=== PATIENT | female | born 1965 | race Caucasian/White ===

== ENCOUNTER 2023-07-23 10:26 | Emergency (ER) | payer OTHER, SELFPAY ==
[2023-07-23 10:36] VITALS: BP 188/82
--- NOTE | 2023-07-23 12:21 | ED.GENMED ---
History of Present Illness
General
Chief Complaint: Musculo-Skeletal Complaint
Source: patient
Exam Limitations: none
Time Seen by Provider: 07/23/23 11:06
Nursing documentation reviewed up to this point in time: agreed with
Travel History
Have you had any contact with someone who has COVID-19?: No
Do you have any symptoms of coronavirus? Fever > 100 degrees, chills, cough, shortness of breath, sore throat, loss of taste or smell, muscle aches, or headache?: No
History of Present Illness
History of Present Illness:
57-year-old female past medical history of GERD diabetes presenting to the emergency department today after twisting her left ankle on the sidewalk yesterday. Has been able to limp since. Denies any numbness weakness.
Past History
Past History
ED Past Medical History: GERD and Hypothyroidism
ED Past Surgical History: Gynecological
Social History
Tobacco: Non-smoker
Alcohol: Occasional
Drug: None
Personal:
Living: with family
Employment: Employed
Review of Systems
Review of Systems
Allergies reviewed?: Yes
All Other Systems: ROS reviewed and negative except as documented in HPI and ROS
Phy Exam
Physical Exam
Physical Exam:
GENERAL: Alert , in no apparent distress
EYE: pupils equal and reactive
NECK: Supple, no significant adenopathy.
ENT: o/p clr, mmm.
CARDIAC: Regular rate and rhythm .
LUNGS: Clear breath sounds bilaterally, no acute respiratory distress, no wheezes/rales/rhonchi
ABDOMEN: Soft, without focal tenderness, no r/g, no cvat
NEUROLOGICAL: Alert and oriented, no focal neuro deficits
SKIN: Warm and dry, skin intact.
MUSCULOSKELETAL: Swelling and tenderness palpation to the lateral malleolus of the left ankle otherwise no tenderness to the medial malleolus foot base of the fifth metatarsal toes tib-fib or knee. Well perfused.
PSYCH: Normal and appropriate interaction.
Course
Orders/Labs/Results
Orders:
Orders
07/23/23 10:39
Ankle, left 3 view CR [CR Ankle - Left Min 3 Views ] Urgent
Comment:
Reason For Exam: twisted left ankle yesterday
07/23/23 11:42
Crutches-Treatment ONCE
boot [Ortho Boot Left- Treatment] ONCE
Short or tall?: Tall
Vital Signs
Initial and Last Documented VS:
Initial Vital Signs
Temp Pulse Resp BP Pulse Ox
98.0 F 95 16 188/82 98
07/23/23 10:36 07/23/23 10:36 07/23/23 10:36 07/23/23 10:36 07/23/23 10:36
Last Documented Vital Signs
Temp Pulse Resp BP Pulse Ox
98.0 F 95 16 188/82 98
07/23/23 10:36 07/23/23 10:36 07/23/23 10:36 07/23/23 10:36 07/23/23 10:36
MDM/Problems Addressed
MDM/Problems Addressed:
57-year-old female presenting to the emergency department today with concerns of left sided ankle swelling discomfort after twisting her ankle stepping awkwardly on a sidewalk yesterday. Has been able to weight-bear but has been limping. Swelling
is mainly to the lateral malleolus. X-ray showing distal fibular fracture. She was placed in a cam boot and she was given a walker as she was not able to tolerate crutches. She was advised to weight-bear as little as possible until orthopedic
follow-up for further recommendation.
*Critical Care Note
Total Time (30-74mins, 75-104mins- exclusive of procedures): Not Applicable
ED Attending Note
-
Portions of this chart may have been created with voice recognition software.� Occasional wrong word or��sound alike� substitutions may have occurred due to the inherent limitations of voice recognition software.
Discharge Plan
Departure
Patient Disposition: Home (Routine Discharge)
Date of Disposition: 07/23/23
Time of Disposition: 12:21
Patient with high blood pressure during this ER visit?: No
Condition: Good
Covid-19: Not Applicable
Discharge Problem:
Ankle fracture, left
Instructions: Ankle Fracture (DC)
Prescriptions:
No Action
lansoprazole [Prevacid] 30 MG capsule,delayed release(DR/EC)
30 mg PO DAILY
levothyroxine 75 MCG tablet
75 mcg PO DAILY
Lactobacillus acidophilus [Probiotic] 1 EACH capsule
1 ea PO DAILY
lorazepam 1 MG tablet
1 mg PO Q6HPRN PRN (Reason: anxiety) Qty: 9 0RF
benzonatate 100 MG capsule
100 mg PO TIDPRN PRN (Reason: cough) Qty: 20 0RF
Referrals:
Eron De La Cruz MD [Active] - Follow up in 5-7 days
Malik Sosa DO [Family Provider] -
Stand Alone Forms: Return to Work
Activity Restrictions/Additional Instructions:
You came to the emergency department today with concerns of ankle discomfort. You are found to have a distal fibular fracture. You are placed in a boot and given a walker to help with ambulation. Please do not weight-bear or weight-bear as little
as possible until orthopedic follow-up for further recommendation. Otherwise please rest ice elevate to help with symptoms.
Interventions
Interventions:
*ED COVID-19 Vaccine History Last Done: 07/23/23 10:36
ED-Musculoskeletal Assessment Last Done: 07/23/23 11:05
Discharge Date and Time
Print Language: CYPRIOT
== END 2023-07-23 12:41 | disposition home or self-care (01) ==
LOC: EMR 10:26
PROVIDERS: EMERGENCY PHYSICIAN Emergency Medicine; FAMILY PHYSICIAN Internal Medicine
DX: S82.832A Other fracture of upper and lower end of left fibula, initial encounter for closed fracture (principal); X50.1XXA Overexertion from prolonged static or awkward postures, initial encounter; Y92.480 Sidewalk as the place of occurrence of the external cause; K21.9 Gastro-esophageal reflux disease without esophagitis; E11.9 Type 2 diabetes mellitus without complications; E03.9 Hypothyroidism, unspecified
CPT/HCPCS: 99283; 29515; 73610

== ENCOUNTER → 2023-09-05 07:47 | Outpatient (REF) | payer OTHER, SELFPAY | LOC: HWRAD 07:47 | PROVIDERS: ATTENDING PHYSICIAN Internal Medicine Endocrinology, Diabetes & Metabolism; FAMILY PHYSICIAN Internal Medicine; REFERRING PHYSICIAN Nurse Practitioner Family | DX: E11.9 Type 2 diabetes mellitus without complications (principal); Z12.31 Encounter for screening mammogram for malignant neoplasm of breast | CPT/HCPCS: 76536; 77063; 77067 ==

== ENCOUNTER 2023-09-06 06:15 | Outpatient (RCR) | payer OTHER, SELFPAY | END 2023-09-06 23:59 | disposition home or self-care (01) | LOC: RPT 06:15 | PROVIDERS: ATTENDING PHYSICIAN Orthopaedic Surgery; FAMILY PHYSICIAN Internal Medicine | DX: S82.832D Other fracture of upper and lower end of left fibula, subsequent encounter for closed fracture with routine healing (principal); W17.2XXD Fall into hole, subsequent encounter; R26.2 Difficulty in walking, not elsewhere classified; M62.81 Muscle weakness (generalized); Z73.6 Limitation of activities due to disability | CPT/HCPCS: 97110; 97161; 97530 ==

== ENCOUNTER 2023-10-17 15:41 | Outpatient (RCR) | payer OTHER, SELFPAY | END 2023-10-17 23:59 | disposition home or self-care (01) | LOC: RPT 15:41 | PROVIDERS: ATTENDING PHYSICIAN Orthopaedic Surgery; FAMILY PHYSICIAN Internal Medicine | DX: Z73.6 Limitation of activities due to disability (principal) | CPT/HCPCS: 97010; 97110; 97140; 97530 ==

== ENCOUNTER 2023-11-19 15:44 | Outpatient (RCR) | payer OTHER, SELFPAY | END 2023-11-19 23:59 | disposition home or self-care (01) | LOC: RPT 15:44 | PROVIDERS: ATTENDING PHYSICIAN Orthopaedic Surgery; FAMILY PHYSICIAN Internal Medicine | DX: S82.892D Other fracture of left lower leg, subsequent encounter for closed fracture with routine healing (principal); X58.XXXD Exposure to other specified factors, subsequent encounter; Z73.6 Limitation of activities due to disability | CPT/HCPCS: 97010; 97110; 97112; 97140; 97530 ==

== ENCOUNTER 2023-12-18 15:51 | Outpatient (RCR) | payer OTHER, SELFPAY | END 2023-12-18 23:59 | disposition home or self-care (01) | LOC: RPT 15:51 | PROVIDERS: ATTENDING PHYSICIAN Orthopaedic Surgery; FAMILY PHYSICIAN Internal Medicine | DX: Z47.89 Encounter for other orthopedic aftercare (principal); S82.832D Other fracture of upper and lower end of left fibula, subsequent encounter for closed fracture with routine healing; Z73.6 Limitation of activities due to disability; R26.2 Difficulty in walking, not elsewhere classified; M62.81 Muscle weakness (generalized); R26.89 Other abnormalities of gait and mobility | CPT/HCPCS: 97010; 97110; 97112; 97140; 97530 ==

== ENCOUNTER 2024-01-07 15:52 | Outpatient (RCR) | payer OTHER, SELFPAY | END 2024-01-07 23:59 | disposition home or self-care (01) | LOC: RPT 15:52 | PROVIDERS: ATTENDING PHYSICIAN Orthopaedic Surgery; FAMILY PHYSICIAN Internal Medicine | DX: R26.2 Difficulty in walking, not elsewhere classified (principal); Z73.6 Limitation of activities due to disability; M62.81 Muscle weakness (generalized); M25.572 Pain in left ankle and joints of left foot; R20.0 Anesthesia of skin; R20.2 Paresthesia of skin | CPT/HCPCS: 97010; 97110; 97140 ==

== ENCOUNTER → 2024-01-26 09:38 | Outpatient (REF) | payer OTHER, SELFPAY | LOC: MRI 3T 09:38 | PROVIDERS: ATTENDING PHYSICIAN Orthopaedic Surgery; FAMILY PHYSICIAN Internal Medicine | DX: S82.65XS Nondisplaced fracture of lateral malleolus of left fibula, sequela (principal); M25.872 Other specified joint disorders, left ankle and foot | CPT/HCPCS: 73721 ==

== ENCOUNTER → 2024-05-28 15:41 | Outpatient (REF) | payer OTHER, SELFPAY | LOC: RAD 15:41 | PROVIDERS: ATTENDING PHYSICIAN Orthopaedic Surgery; FAMILY PHYSICIAN Internal Medicine | DX: S82.65XS Nondisplaced fracture of lateral malleolus of left fibula, sequela (principal) | CPT/HCPCS: 73700 ==

== ENCOUNTER 2024-08-15 07:34 | Outpatient (RCR) | payer OTHER, SELFPAY | END 2024-08-15 23:59 | disposition home or self-care (01) | LOC: RPT 07:34 | PROVIDERS: ATTENDING PHYSICIAN Orthopaedic Surgery; FAMILY PHYSICIAN Internal Medicine | DX: Z47.89 Encounter for other orthopedic aftercare (principal); S99.912D Unspecified injury of left ankle, subsequent encounter; R26.89 Other abnormalities of gait and mobility; Z73.6 Limitation of activities due to disability; R20.0 Anesthesia of skin; R20.2 Paresthesia of skin; M62.81 Muscle weakness (generalized) | CPT/HCPCS: 97110; 97162 ==

== ENCOUNTER → 2024-09-16 07:19 | Outpatient (REF) | payer OTHER, SELFPAY | LOC: HWWDC 07:19 | PROVIDERS: ATTENDING PHYSICIAN Nurse Practitioner Family | DX: E04.1 Nontoxic single thyroid nodule (principal); Z12.31 Encounter for screening mammogram for malignant neoplasm of breast | CPT/HCPCS: 76536; 77063; 77067 ==

== ENCOUNTER 2024-09-17 13:08 | Outpatient (RCR) | payer OTHER, SELFPAY | END 2024-09-17 23:59 | disposition home or self-care (01) | LOC: RPT 13:08 | PROVIDERS: ATTENDING PHYSICIAN Orthopaedic Surgery; FAMILY PHYSICIAN Internal Medicine | DX: Z47.89 Encounter for other orthopedic aftercare (principal); S99.912D Unspecified injury of left ankle, subsequent encounter; R26.89 Other abnormalities of gait and mobility; Z73.6 Limitation of activities due to disability; R20.0 Anesthesia of skin; R20.2 Paresthesia of skin; M62.81 Muscle weakness (generalized) | CPT/HCPCS: 97010; 97110; 97140 ==

== ENCOUNTER 2024-10-15 15:57 | Outpatient (RCR) | payer OTHER, SELFPAY | END 2024-10-15 23:59 | disposition home or self-care (01) | LOC: RPT 15:57 | PROVIDERS: ATTENDING PHYSICIAN Orthopaedic Surgery; FAMILY PHYSICIAN Internal Medicine | DX: Z47.89 Encounter for other orthopedic aftercare (principal); S99.912D Unspecified injury of left ankle, subsequent encounter; R26.89 Other abnormalities of gait and mobility; Z73.6 Limitation of activities due to disability; R20.0 Anesthesia of skin; R20.2 Paresthesia of skin; M62.81 Muscle weakness (generalized) | CPT/HCPCS: 97010; 97110; 97140 ==

== ENCOUNTER 2024-11-18 16:07 | Outpatient (RCR) | payer OTHER, SELFPAY | END 2024-11-18 23:59 | disposition home or self-care (01) | LOC: RPT 16:07 | PROVIDERS: ATTENDING PHYSICIAN Orthopaedic Surgery; FAMILY PHYSICIAN Internal Medicine | DX: S99.912A Unspecified injury of left ankle, initial encounter (principal); Z47.89 Encounter for other orthopedic aftercare (principal); R26.89 Other abnormalities of gait and mobility; Z73.6 Limitation of activities due to disability; R20.0 Anesthesia of skin; R20.2 Paresthesia of skin; M62.81 Muscle weakness (generalized); S99.912D Unspecified injury of left ankle, subsequent encounter | CPT/HCPCS: 97010; 97110 ==

== ENCOUNTER 2024-12-19 08:32 | Outpatient (RCR) | payer OTHER, SELFPAY | END 2024-12-19 23:59 | disposition home or self-care (01) | LOC: RPT 08:32 | PROVIDERS: ATTENDING PHYSICIAN Orthopaedic Surgery; FAMILY PHYSICIAN Internal Medicine | DX: Z47.89 Encounter for other orthopedic aftercare (principal); R26.89 Other abnormalities of gait and mobility; Z73.6 Limitation of activities due to disability; R20.0 Anesthesia of skin; R20.2 Paresthesia of skin; M62.81 Muscle weakness (generalized); S99.912D Unspecified injury of left ankle, subsequent encounter; S99.912A Unspecified injury of left ankle, initial encounter | CPT/HCPCS: 97010; 97110; 97140 ==

== ENCOUNTER 2025-01-14 13:18 | Outpatient (RCR) | payer OTHER, SELFPAY | END 2025-01-14 23:59 | disposition home or self-care (01) | LOC: RPT 13:18 | PROVIDERS: ATTENDING PHYSICIAN Orthopaedic Surgery; FAMILY PHYSICIAN Internal Medicine | DX: Z47.89 Encounter for other orthopedic aftercare (principal); R26.89 Other abnormalities of gait and mobility; Z73.6 Limitation of activities due to disability; R20.0 Anesthesia of skin; R20.2 Paresthesia of skin; M62.81 Muscle weakness (generalized); S99.912D Unspecified injury of left ankle, subsequent encounter; S99.912A Unspecified injury of left ankle, initial encounter | CPT/HCPCS: 97010; 97110 ==

== ENCOUNTER 2025-01-19 10:57 | Emergency (ER) | payer OTHER, SELFPAY ==
[2025-01-19 11:24] VITALS: BP 157/92
--- NOTE | 2025-01-19 11:59 | ED.GENMED ---
History of Present Illness
General
Chief Complaint: Back Pain
Source: patient
Exam Limitations: none
Time Seen by Provider: 01/19/25 11:50
Nursing documentation reviewed up to this point in time: agreed with
History of Present Illness
History of Present Illness:
59-year-old female with history of NIDDM, hypothyroidism, anxiety/depression, states she was walking in the parking lot to go into jury duty at the court house when she slipped on black ice fell landing on her lower back and buttock. She was able
to get up with the help of others and ambulate into the building to await EMS. Arrives with pain in her lower back across the lower back and she states intermittent radiation down the left thigh. Pain is 2/10 now at rest but goes to 9/10 with
movement. She denies saddle anesthesia, denies weakness in her legs. There is been no loss of control of bowel or bladder.
Past History
Past History
ED Past Medical History: GERD, NIDDM, Hypothyroidism and Psychiatric (anxiety/depression)
ED Past Surgical History: Cholecystectomy, Gynecological, Orthopedic and Tonsilectomy
Social History
Tobacco: Non-smoker
Alcohol: Occasional
Drug: None
Personal:
Living: with family
Employment: Employed
Review of Systems
Review of Systems
Allergies reviewed?: Yes
All Other Systems: ROS reviewed and negative except as documented in HPI and ROS
Respiratory: Denies trouble breathing
Cardiac: Denies chest pain
ABD/GI: Denies abdominal pain
: Denies incontinence
Musculoskeletal: Reports back pain; Denies edema or neck pain
Skin: Reports no symptoms
Neurological: Reports no symptoms
Phy Exam
Physical Exam
Physical Exam:
GENERAL: No acute distress. A&Ox3.
CONSTITUTIONAL: Afebrile.
RESPIRATORY: Regular respirations, nonlabored, lungs clear.
CARDIOVASCULAR: Regular rate and rhythm, no murmurs, no rubs.
GI: Soft, nontender
MUSCULOSKELETAL: Tender to palpate lower lumbar spine and sacrum. SLR bilaterally elicits pain L>R able to raise up to 45 degrees off bed. Well perfused.
SKIN: Warm, dry, pink
PSYCH: Normal mood and affect. Well kept, interactive and appropriate
NEUROLOGIC: Awake, alert and oriented. No focal neurological deficits. Strength equal throughout. Equal patellar reflexes.
Course
Orders/Labs/Results
Orders:
Orders
01/19/25 11:58
Ibuprofen [Motrin] 800 mg PO NOW STA
CR Sacrum/coccyx Min 2 View Urgent
Comment:
Reason For Exam: pain after fall on ice
LS Spine Complete, 4 View [CR Lumbar Spine Comp Min 4 Vw*] Urgent
Comment:
Reason For Exam: pain after fall on ice
01/19/25 13:22
Diazepam [Valium] 5 mg PO NOW STA
01/19/25 13:56
Dexamethasone [Decadron] 10 mg PO NOW STA
01/19/25 15:00
Tetanus/Diphth/Acelpertussis [Adacel] 0.5 ml IM .ONCE ONE
Vital Signs
Initial and Last Documented VS:
Initial Vital Signs
Pulse Resp BP Pulse Ox
80 18 157/92 97
01/19/25 11:24 01/19/25 11:24 01/19/25 11:24 01/19/25 11:24
Last Documented Vital Signs
Pulse Resp BP Pulse Ox
80 16 157/92 97
01/19/25 11:24 01/19/25 13:23 01/19/25 11:24 01/19/25 12:06
MDM/Problems Addressed
Differential Diagnosis Includes:
low back contusion, strain/sprain, fracture
MDM/Problems Addressed:
59-year-old female with history of NIDDM, hypothyroidism, anxiety/depression, states she was walking in the parking lot to go into jury duty at the court house when she slipped on black ice fell landing on her lower back and buttock. She was able
to get up with the help of others and ambulate into the building to await EMS. Arrives with pain in her lower back across the lower back and she states intermittent radiation down the left thigh. Pain is 2/10 now at rest but goes to 9/10 with
movement. She denies saddle anesthesia, denies weakness in her legs. There is been no loss of control of bowel or bladder.
No neuro deficits
X-ray L-spine, sacrum and coccyx radiology report read: No acute findings. DJD.
Pt having intermittent back spasms
Patient is NIDDM, so will not give her a steroid taper, I will give her 1 dose of Decadron here and she knows to check her blood sugars
Prescription sent to patient pharmacy for Flexeril muscle relaxant.
At discharge, pt able to get off stretcher, stand and ambulate albeit slowly with discomfort.
DC'd via wheelchair.
*Pulse Oximetry
SaO2: 97
Oxygen Mode of Delivery: Room air
Patient hypoxic: not evaluated
*Critical Care Note
Total Time (30-74mins, 75-104mins- exclusive of procedures): Not Applicable
ED Attending Note
-
Portions of this chart may have been created with voice recognition software.� Occasional wrong word or��sound alike� substitutions may have occurred due to the inherent limitations of voice recognition software.
Discharge Plan
Departure
Patient Disposition: Home (Routine Discharge)
Date of Disposition: 01/19/25
Time of Disposition: 13:58
Patient with high blood pressure during this ER visit?: No
Condition: Good
Discharge Problem:
Fall from slip, trip, or stumble, Low back pain, Contusion of lower back
Instructions: Low back pain - ED (DC), Contusion
Prescriptions:
New
cyclobenzaprine 10 mg tablet
10 mg PO TID PRN (Reason: bsck pain/spasms) Qty: 30 0RF
No Action
lansoprazole [Prevacid] 30 MG capsule,delayed release(DR/EC)
30 mg PO DAILY
levothyroxine 75 MCG tablet
75 mcg PO DAILY
Lactobacillus acidophilus [Probiotic] 1 EACH capsule
1 ea PO DAILY
lorazepam 1 MG tablet
1 mg PO Q6HPRN PRN (Reason: anxiety) Qty: 9 0RF
benzonatate 100 MG capsule
100 mg PO TIDPRN PRN (Reason: cough) Qty: 20 0RF
Referrals:
Malik Sosa, [Family Provider, Internal Medicine] - Follow up in 2-3 days
Stand Alone Forms: Return to Work
Activity Restrictions/Additional Instructions:
As we discussed, nothing is broken or out of place on your x-rays.
I sent a prescription to your pharmacy for Flexeril (cyclobenzaprine) which is a muscle relaxant you may use up to 3 times a day as needed for muscle spasms. Flexeril can make you sleepy and slow the reflexes so do not drive or operate any
machinery within 8 hours of taking it.
Ibuprofen 600 to 800 mg up to 3 times a day as needed for pain.
See your doctor for recheck in 2-3 days and further instruction on return to work if needed
Interventions
Interventions:
*Risk Screen - Suicide Last Done: 01/19/25 11:24
*General Assessment Last Done: 01/19/25 11:24
*Neglect/Abuse Screening Last Done: 01/19/25 11:24
*ED COVID-19 Vaccine History Last Done: 01/19/25 11:24
*ED Influenza Vaccine History Last Done: 01/19/25 11:24
*Nursing Disposition Last Done: 01/19/25 14:48
ED-Musculoskeletal Assessment Last Done: 01/19/25 12:23
Discharge Date and Time
Discharge Date/Time: 01/19/25 14:49
Print Language: AZERI
[2025-01-19] MEDS: MOTRIN 800 MG PO (12:05)
[2025-01-19] MEDS: VALIUM 5 MG PO (13:32)
[2025-01-19] MEDS: DECADRON 10 MG PO (14:18)
[2025-01-19] MEDS: ADACEL 0.5 ML IM (14:18)
== END 2025-01-19 14:49 | disposition home or self-care (01) ==
LOC: EMR 10:57
PROVIDERS: EMERGENCY PHYSICIAN Emergency Medicine; FAMILY PHYSICIAN Internal Medicine
DX: S30.0XXA Contusion of lower back and pelvis, initial encounter (principal); W00.2XXA Other fall from one level to another due to ice and snow, initial encounter; Y93.01 Activity, walking, marching and hiking; Y92.240 Courthouse as the place of occurrence of the external cause; M47.816 Spondylosis without myelopathy or radiculopathy, lumbar region; E11.9 Type 2 diabetes mellitus without complications; E03.9 Hypothyroidism, unspecified; F41.9 Anxiety disorder, unspecified; F32.A Depression, unspecified; K21.9 Gastro-esophageal reflux disease without esophagitis; Z23 Encounter for immunization; Z79.84 Long term (current) use of oral hypoglycemic drugs
CPT/HCPCS: 99283; 90471; 72110; 72220; 90715

== ENCOUNTER → 2025-01-22 11:51 | Outpatient (REF) | payer OTHER, SELFPAY | LOC: RAD 11:51 | PROVIDERS: ATTENDING PHYSICIAN Nurse Practitioner Family | DX: M25.562 Pain in left knee (principal) | CPT/HCPCS: 73564 ==

== ENCOUNTER 2025-02-18 07:29 | Outpatient (RCR) | payer OTHER, SELFPAY | END 2025-02-18 23:59 | disposition home or self-care (01) | LOC: RPT 07:29 | PROVIDERS: ATTENDING PHYSICIAN Orthopaedic Surgery; FAMILY PHYSICIAN Internal Medicine | DX: Z47.89 Encounter for other orthopedic aftercare (principal); R26.89 Other abnormalities of gait and mobility; Z73.6 Limitation of activities due to disability; R20.0 Anesthesia of skin; R20.2 Paresthesia of skin; M62.81 Muscle weakness (generalized); S99.912D Unspecified injury of left ankle, subsequent encounter; S99.912A Unspecified injury of left ankle, initial encounter | CPT/HCPCS: 97010; 97110 ==